=== PATIENT | female | born 1975 | race African-American/Black ===

== ENCOUNTER 2016-08-05 20:21 | Emergency (ER) | payer MEDICAID ==
[~2016-08-05] VITALS: Ht 170.2 cm; Wt 81.6 kg
[~2016-08-05 20:21] MED LIST: BENA40TA7 PO; HYDR25TA4 PO; LOR05T PO; METO-159 PO
[2016-08-05] MEDS ORDERED: cloNIDine HCL 0.1 MG TAB PO ONE ×3 (20:45→22:30)
[2016-08-05 21:30] LABS: CONDITION AutoValidated; Hematocrit 37.8 % (36.0-46.0); Hemoglobin 12.9 g/dL (12.2-16.2); Mean Corpuscular Hemoglobin 31.8 pg (28.0-32.0); Mean Corpuscular Hgb Conc. 34.2 g/dL (32.0-36.0); Mean Corpuscular Volume 93.1 fL (80.0-100.0); Mean Platelet Volume 7.4 fL (7.4-10.4); Platelet Count (auto) 376 10^3/uL (140-450); Red Cell Distribution Width 15.9 % (11.6-16.0); White Blood Cell 7.5 10^3/uL (4.4-10.8)
[2016-08-05 21:34] LABS: Metamyelocytes % 0; Myelocytes % 0; Promyelocytes % 0; Reactive Lymphocytes 0
[2016-08-05 21:45] LABS: Calcium 8.8 mg/dL (8.5-10.1)
[2016-08-05 21:48] LABS: Albumin 3.6 g/dL (3.4-5.0); BUN/Creatinine Ratio 12.6
[2016-08-05 21:51] LABS: Bilirubin, Total 0.5 mg/dL (0.2-1.0); Total Protein 7.2 g/dL (6.4-8.2)
[2016-08-05 21:52] LABS: Potassium 3.5 mmol/L (3.5-5.1)
[2016-08-05 22:09] LABS: Platelet Estimate Adequate
[2016-08-05 22:10] LABS: Giant Platelets Few; Stomatocytes Few
[2016-08-05] MEDS ORDERED: LORazepam 0.5 MG TAB PO ONE (22:30)
[2016-08-05] MEDS ORDERED: LABETALOL HCL 200 MG TAB PO ONE (23:30)
[2016-08-05 23:33] LABS: Urine Bilirubin Negative (Negative); Urine Blood Negative /uL (Negative); Urine Color Yellow (Yellow); Urine Glucose Normal (Normal); Urine Ketone Negative (Negative); Urine Nitrite Negative (Negative); Urine RBC <1 /hpf (0 - 4); Urine Squamous Epithelial Cell FEW /hpf (<5); Urine Urobilinogen Normal (Negative)
[2016-08-06 01:00] VITALS: BP 129/85
== END 2016-08-06 01:01 | disposition home or self-care (01) ==
LOC: EDUNIT# 20:21 → EDBD 20:21 → ER 20:31
DX: F41.9 Anxiety disorder, unspecified (principal); I10 Essential (primary) hypertension; I20.9 Angina pectoris, unspecified; F17.210 Nicotine dependence, cigarettes, uncomplicated; F15.10 Other stimulant abuse, uncomplicated; Z87.442 Personal history of urinary calculi
CPT/HCPCS: 36415; 80053; 81001; 85007; 85027

== ENCOUNTER 2020-04-05 19:50 | Emergency (ER) | payer MEDICAID ==
[~2020-04-05] VITALS: Ht 170.2 cm; Wt 104.3 kg
[~2020-04-05 19:50] MED LIST changes: -BENA40TA7 PO; +BENA40TA8 PO; -LOR05T PO; +LORA0.5T20 PO
[2020-04-05 22:04] VITALS: BP 130/88
== END 2020-04-05 22:38 ==
LOC: ER 19:52
DX: F10.129 Alcohol abuse with intoxication, unspecified (principal); F17.210 Nicotine dependence, cigarettes, uncomplicated; I10 Essential (primary) hypertension; Z79.899 Other long term (current) drug therapy

== ENCOUNTER 2020-04-27 04:11 | Emergency (ER) | payer MEDICAID ==
[~2020-04-27] VITALS: Ht 170.2 cm; Wt 79.4 kg
[2020-04-27] MEDS ORDERED: LORazepam 0.5 MG TAB PO ONE (05:45)
[2020-04-27 06:12] VITALS: BP 139/91
[2020-04-27 06:43] LABS: Basophils # (auto) 0.1 10 ^3/uL (0-0.2); Basophils % (auto) 1.2 % (0.0-2.0); Eosinophils # (auto) 0.1 10 ^3/uL (0-0.8); Eosinophils % (auto) 2.5 % (0.0-7.0); Hematocrit 33.9 % (36.0-46.0); Hemoglobin 11.5 g/dL (12.2-16.2); Lymphocytes # (auto) 1.4 10 ^3/uL (0.4-5.4); Lymphocytes % (auto) 23.5 % (10.0-50.0); Mean Corpuscular Hemoglobin 31.5 pg (28.0-32.0); Mean Corpuscular Volume 92.6 fL (80.0-100.0); Monocytes # (auto) 0.9 10 ^3/uL (0-1.3); Monocytes % (auto) 15.4 % (0.0-12.0); Neutrophils # (auto) 3.4 10 ^3/uL (1.6-8.6); Neutrophils % (auto) 57.4 % (37.0-80.0); Nucleated Red Blood Cells % 0.1 %; Platelet Count (auto) 210 10^3/uL (140-450); Red Blood Cells 3.66 10^6/uL (4.0-5.20); Red Cell Distribution Width 14.9 % (11.8-14.3); White Blood Cell 5.9 10^3/uL (4.4-10.8)
[2020-04-27 07:01] LABS: Albumin 3.1 g/dL (3.4-5.0); Anion Gap 8 (5-15); Blood Urea Nitrogen 17 mg/dL (7-18); Calcium 8.3 mg/dL (8.5-10.1); Carbon Dioxide 27 mmol/L (21-32); Chloride 104 mmol/L (98-107); Glucose 84 mg/dL (74-106); Potassium 3.1 mmol/L (3.5-5.1); Sodium 139 mmol/L (136-145)
[2020-04-27 07:06] LABS: Alanine Aminotransferase 57 U/L (13-56); Alkaline Phosphatase 104 U/L (45-117); Aspartate Aminotransferase 89 U/L (15-37); BUN/Creatinine Ratio 22.7; Bilirubin, Total 0.5 mg/dL (0.2-1.0); GFR African American 107 mL/min; GFR Non-African American 88 mL/min; Total Protein 7.3 g/dL (6.4-8.2)
== END 2020-04-27 06:18 | disposition home or self-care (01) ==
LOC: EDBD 04:11 → ER 04:11
DX: F41.9 Anxiety disorder, unspecified (principal); R20.2 Paresthesia of skin; F32.9 Major depressive disorder, single episode, unspecified; I10 Essential (primary) hypertension; F17.210 Nicotine dependence, cigarettes, uncomplicated; F10.20 Alcohol dependence, uncomplicated; Z79.899 Other long term (current) drug therapy; Y90.9 Presence of alcohol in blood, level not specified
CPT/HCPCS: 36415; 71045; 80053; 83880; 84484; 85025; 93005

== ENCOUNTER 2020-05-26 19:25 | Emergency (ER) | payer MEDICAID ==
[~2020-05-26] VITALS: Ht 152.4 cm; Wt 72.6 kg
[2020-05-26] MEDS ORDERED: LORazepam 0.5 MG TAB PO ONE (19:30)
[2020-05-27 00:36] VITALS: BP 150/91
== END 2020-05-27 00:39 | disposition home or self-care (01) ==
LOC: EDBD 19:25 → ER 19:25
DX: F41.0 Panic disorder [episodic paroxysmal anxiety] (principal); F41.9 Anxiety disorder, unspecified; F32.9 Major depressive disorder, single episode, unspecified; I10 Essential (primary) hypertension; F17.210 Nicotine dependence, cigarettes, uncomplicated
CPT/HCPCS: 81025; 93005

== ENCOUNTER 2020-06-04 17:15 | Emergency (ER) | payer MEDICAID ==
[~2020-06-04] VITALS: Ht 170.2 cm; Wt 81.6 kg
[2020-06-04] MEDS ORDERED: THIAMINE INJ 100 MG in SODIUM CHLORIDE 0.9% 1,000 ML IV ONE (17:45)
[2020-06-04] MEDS ORDERED: SODIUM CHLORIDE 0.9% 1,000 ML IV ONE ×2 (17:45→20:00)
[2020-06-04] MEDS ORDERED: LORazepam 2MG/ML-1ML VIAL IV ONE (18:30)
[2020-06-04 18:48] LABS: Urine Bacteria FEW /hpf (None Seen); Urine Blood TRACE /uL (Negative); Urine Hyaline Cast FEW /lpf (0 - 2); Urine Mucus FEW (None Seen); Urine Specific Gravity 1.012 (1.001-1.035); Urine WBC 31 /hpf (0 - 5)
[2020-06-04 18:53] LABS: Amphetamine Screen, Urine NEGATIVE (NEGATIVE); Barbiturate Scree,Urine NEGATIVE (NEGATIVE); Benzodiazephine Screen, Urine NEGATIVE (NEGATIVE); Cannabinoid Screen, Urine NEGATIVE (NEGATIVE); Cocaine Screen, Urine NEGATIVE (NEGATIVE); Opiate Scree,Urine NEGATIVE (NEGATIVE); Phencyclidine Screen, Urine NEGATIVE (NEGATIVE)
[2020-06-04] MEDS ORDERED: cefTRIAXone 1GM/50ML D5W 50 ML IV ONE (19:00)
[2020-06-04 19:39] LABS: Basophils # (auto) 0 10 ^3/uL (0-0.2); Basophils % (auto) 0.8 % (0.0-2.0); Eosinophils # (auto) 0 10 ^3/uL (0-0.8); Hematocrit 41.5 % (36.0-46.0); Hemoglobin 14.1 g/dL (12.2-16.2); Lymphocytes # (auto) 1.3 10 ^3/uL (0.4-5.4); Lymphocytes % (auto) 27.5 % (10.0-50.0); Mean Corpuscular Hemoglobin 30.9 pg (28.0-32.0); Mean Corpuscular Hgb Conc. 33.8 g/dL (32.0-36.0); Mean Corpuscular Volume 91.2 fL (80.0-100.0); Monocytes # (auto) 0.2 10 ^3/uL (0-1.3); Monocytes % (auto) 3.2 % (0.0-12.0); Neutrophils # (auto) 3.3 10 ^3/uL (1.6-8.6); Neutrophils % (auto) 68.5 % (37.0-80.0); Nucleated Red Blood Cells % 0.4 %; Platelet Count (auto) 282 10^3/uL (140-450); Red Blood Cells 4.55 10^6/uL (4.0-5.20); Red Cell Distribution Width 15.5 % (11.8-14.3); White Blood Cell 4.9 10^3/uL (4.4-10.8)
[2020-06-04 19:54] LABS: BUN/Creatinine Ratio 10.7; Calcium 8.4 mg/dL (8.5-10.1); Magnesium 1.9 mg/dL (1.6-2.6); Potassium 3.6 mmol/L (3.5-5.1)
[2020-06-04 19:56] LABS: Bilirubin, Total 0.6 mg/dL (0.2-1.0); INR 0.99 (0.9-1.15); Partial Thromboplastin Time 27.6 sec (23.0-31.2); Salicylate < 1.7 mg/dL (2.8-20.0); Total Protein 8.6 g/dL (6.4-8.2)
[2020-06-04 19:57] LABS: Acetaminophen < 2.0 ug/mL (10-30)
[2020-06-04 20:11] LABS: Blood Alcohol 371.7 mg/dL (0-5)
[2020-06-04 21:51] VITALS: BP 139/95
== END 2020-06-04 22:10 | disposition home or self-care (01) ==
LOC: ER 17:15 → EDBD 17:15 → EDUNIT# 17:15 → ER 22:10
DX: F10.129 Alcohol abuse with intoxication, unspecified (principal); N39.0 Urinary tract infection, site not specified; F41.9 Anxiety disorder, unspecified; F32.9 Major depressive disorder, single episode, unspecified; I10 Essential (primary) hypertension; F17.210 Nicotine dependence, cigarettes, uncomplicated; R41.82 Altered mental status, unspecified; F60.3 Borderline personality disorder; Y90.8 Blood alcohol level of 240 mg/100 ml or more
CPT/HCPCS: 36415; 80053; 80307; 80320; 80329; 81001; 83735; 83880; 84443; 84484; 85025; 85610; 85730; 96361; 96365; 96368; 96375; 99284; J0696; J2060; J3411; J7030

== ENCOUNTER 2020-06-09 09:38 | Emergency (ER) | payer MEDICAID ==
[~2020-06-09] VITALS: Ht 172.7 cm; Wt 72.6 kg
[2020-06-09 10:03] VITALS: BP 130/90
== END 2020-06-09 10:06 | disposition home or self-care (01) ==
LOC: ER 09:38 → EDBD 09:38 → ER 10:06
DX: F41.9 Anxiety disorder, unspecified (principal)

== ENCOUNTER 2020-06-10 02:31 | Emergency (ER) | payer MEDICAID ==
[~2020-06-10] VITALS: Ht 175.3 cm; Wt 81.6 kg
[2020-06-10] MEDS ORDERED: LABETALOL HCL 200 MG TAB PO ONE (05:15)
[2020-06-10] MEDS ORDERED: SODIUM CHLORIDE 0.9% 1,000 ML IVB ONE (07:15)
[2020-06-10 08:01] LABS: Basophils # (auto) 0.1 10 ^3/uL (0-0.2); Basophils % (auto) 1.4 % (0.0-2.0); Eosinophils # (auto) 0.1 10 ^3/uL (0-0.8); Eosinophils % (auto) 1.5 % (0.0-7.0); Hematocrit 37.5 % (36.0-46.0); Hemoglobin 12.7 g/dL (12.2-16.2); Lymphocytes # (auto) 1.7 10 ^3/uL (0.4-5.4); Lymphocytes % (auto) 32.7 % (10.0-50.0); Mean Corpuscular Hgb Conc. 33.9 g/dL (32.0-36.0); Mean Corpuscular Volume 91.3 fL (80.0-100.0); Monocytes # (auto) 0.5 10 ^3/uL (0-1.3); Monocytes % (auto) 9.7 % (0.0-12.0); Neutrophils # (auto) 2.9 10 ^3/uL (1.6-8.6); Neutrophils % (auto) 54.7 % (37.0-80.0); Nucleated Red Blood Cells % 0.1 %; Platelet Count (auto) 183 10^3/uL (140-450); Red Blood Cells 4.11 10^6/uL (4.0-5.20); Red Cell Distribution Width 15.9 % (11.8-14.3); White Blood Cell 5.2 10^3/uL (4.4-10.8)
[2020-06-10 08:20] LABS: Albumin 3.6 g/dL (3.4-5.0); Magnesium 2.1 mg/dL (1.6-2.6)
[2020-06-10 08:28] LABS: BUN/Creatinine Ratio 16.1; Bilirubin, Total 0.6 mg/dL (0.2-1.0); Total Protein 7.3 g/dL (6.4-8.2)
[2020-06-10 08:47] LABS: Potassium 2.9 mmol/L (3.5-5.1)
[2020-06-10] MEDS ORDERED: POTASSIUM EFFERVESENT TAB 25 MEQ PO ONE (09:00)
[2020-06-10 10:44] LABS: Urine Bacteria FEW /hpf (None Seen); Urine Blood Negative /uL (Negative); Urine Hyaline Cast FEW /lpf (0 - 2); Urine Mucus FEW (None Seen); Urine Specific Gravity 1.025 (1.001-1.035); Urine WBC 6 /hpf (0 - 5)
[2020-06-10 11:06] LABS: Amphetamine Screen, Urine NEGATIVE (NEGATIVE); Barbiturate Scree,Urine NEGATIVE (NEGATIVE); Benzodiazephine Screen, Urine NEGATIVE (NEGATIVE); Cannabinoid Screen, Urine NEGATIVE (NEGATIVE); Cocaine Screen, Urine NEGATIVE (NEGATIVE); Opiate Scree,Urine NEGATIVE (NEGATIVE); Phencyclidine Screen, Urine NEGATIVE (NEGATIVE)
[2020-06-10] MEDS ORDERED: LORazepam 2MG/ML-1ML VIAL IV ONE (11:30)
[2020-06-10 14:40] VITALS: BP 160/112
== END 2020-06-10 15:15 | disposition home or self-care (01) ==
LOC: EDBD 02:31 → ER 02:37
DX: F43.20 Adjustment disorder, unspecified (principal); F10.19 Alcohol abuse with unspecified alcohol-induced disorder; E87.6 Hypokalemia; I10 Essential (primary) hypertension
CPT/HCPCS: 36415; 80053; 80307; 81001; 83735; 84443; 85025; 93005; 96361; 96374; 99285; J2060; J7030

== ENCOUNTER 2020-06-22 22:39 | Emergency (ER) | payer MEDICAID ==
[~2020-06-22] VITALS: Ht 157.5 cm; Wt 77.1 kg
[2020-06-23] MEDS ORDERED: FOLIC ACID 1 MG TAB PO ONE (00:30)
[2020-06-23] MEDS ORDERED: THIAMINE HCL 100 MG TAB PO ONE (00:30)
[2020-06-23 05:00] VITALS: BP 111/80
== END 2020-06-23 05:54 | disposition home or self-care (01) ==
LOC: EDBD 22:39 → ER 22:43
DX: F10.129 Alcohol abuse with intoxication, unspecified (principal); F43.21 Adjustment disorder with depressed mood; F17.210 Nicotine dependence, cigarettes, uncomplicated; F41.9 Anxiety disorder, unspecified; F32.9 Major depressive disorder, single episode, unspecified; I10 Essential (primary) hypertension; Y90.8 Blood alcohol level of 240 mg/100 ml or more

== ENCOUNTER 2020-06-29 08:44 | Emergency (ER) | payer MEDICAID ==
[~2020-06-29] VITALS: Ht 172.7 cm; Wt 81.6 kg
[2020-06-29] MEDS ORDERED: LORazepam 2MG/ML-1ML VIAL IV ONE (09:00)
[2020-06-29] MEDS ORDERED: SODIUM CHLORIDE 0.9% 1,000 ML IV ONE (09:00)
[2020-06-29 09:16] LABS: Basophils # (auto) 0.1 10 ^3/uL (0-0.2); Eosinophils # (auto) 0 10 ^3/uL (0-0.8); Eosinophils % (auto) 0.4 % (0.0-7.0); Lymphocytes # (auto) 2.4 10 ^3/uL (0.4-5.4); Monocytes # (auto) 0.8 10 ^3/uL (0-1.3); White Blood Cell 7.5 10^3/uL (4.4-10.8)
[2020-06-29 09:18] LABS: Hematocrit 41.8 % (36.0-46.0); Mean Corpuscular Hemoglobin 30.7 pg (28.0-32.0); Mean Corpuscular Hgb Conc. 33.6 g/dL (32.0-36.0); Mean Corpuscular Volume 91.2 fL (80.0-100.0); Monocytes % (auto) 10.7 % (0.0-12.0); Neutrophils # (auto) 4.2 10 ^3/uL (1.6-8.6); Neutrophils % (auto) 55.9 % (37.0-80.0); Red Blood Cells 4.58 10^6/uL (4.0-5.20); Red Cell Distribution Width 16.7 % (11.8-14.3)
[2020-06-29 09:49] LABS: Anion Gap 16 (5-15); BUN/Creatinine Ratio 6.6; Blood Urea Nitrogen 6 mg/dL (7-18); Carbon Dioxide 22 mmol/L (21-32); Chloride 100 mmol/L (98-107); GFR African American 85 mL/min; GFR Non-African American 70 mL/min; Glucose 135 mg/dL (74-106); Potassium 3.7 mmol/L (3.5-5.1); Sodium 138 mmol/L (136-145)
[2020-06-29 09:50] LABS: Alanine Aminotransferase 62 U/L (13-56); Alkaline Phosphatase 86 U/L (45-117); Aspartate Aminotransferase 92 U/L (15-37); Bilirubin, Total 0.8 mg/dL (0.2-1.0); Calcium 8.4 mg/dL (8.5-10.1)
[2020-06-29] MEDS ORDERED: LABETALOL HCL 5 MG/ML 4ML SYRINGE IV ONE (11:15)
[2020-06-29 12:09] VITALS: BP 154/103
== END 2020-06-29 12:31 | disposition home or self-care (01) ==
LOC: EDBD 08:44 → ER 08:44
DX: F10.180 Alcohol abuse with alcohol-induced anxiety disorder (principal); I10 Essential (primary) hypertension; F17.210 Nicotine dependence, cigarettes, uncomplicated; Z79.899 Other long term (current) drug therapy; Y90.8 Blood alcohol level of 240 mg/100 ml or more
CPT/HCPCS: 36415; 80053; 80320; 84484; 85025; 96361; 96374; 96375; 99285; J2060; J3490; J7030

== ENCOUNTER 2020-07-02 00:18 | Emergency (ER) | payer MEDICAID ==
[~2020-07-02] VITALS: Ht 170.2 cm; Wt 81.6 kg
[2020-07-02 01:02] LABS: Basophils # (auto) 0 10 ^3/uL (0-0.2); Basophils % (auto) 0.6 % (0.0-2.0); Eosinophils # (auto) 0 10 ^3/uL (0-0.8); Eosinophils % (auto) 0.5 % (0.0-7.0); Hematocrit 41.5 % (36.0-46.0); Hemoglobin 14.3 g/dL (12.2-16.2); Lymphocytes # (auto) 3.5 10 ^3/uL (0.4-5.4); Lymphocytes % (auto) 45.2 % (10.0-50.0); Mean Corpuscular Hgb Conc. 34.5 g/dL (32.0-36.0); Mean Corpuscular Volume 89.9 fL (80.0-100.0); Monocytes # (auto) 0.8 10 ^3/uL (0-1.3); Monocytes % (auto) 10.5 % (0.0-12.0); Neutrophils # (auto) 3.4 10 ^3/uL (1.6-8.6); Neutrophils % (auto) 43.2 % (37.0-80.0); Nucleated Red Blood Cells % 0.1 %; Platelet Count (auto) 305 10^3/uL (140-450); Red Blood Cells 4.61 10^6/uL (4.0-5.20); Red Cell Distribution Width 16.6 % (11.8-14.3); White Blood Cell 7.8 10^3/uL (4.4-10.8)
[2020-07-02 01:18] LABS: Albumin 3.8 g/dL (3.4-5.0); BUN/Creatinine Ratio 14.3; Calcium 8.1 mg/dL (8.5-10.1); Potassium 3.6 mmol/L (3.5-5.1)
[2020-07-02 01:20] LABS: Salicylate < 1.7 mg/dL (2.8-20.0)
[2020-07-02 01:22] LABS: Acetaminophen < 2.0 ug/mL (10-30)
[2020-07-02 01:23] LABS: Bilirubin, Total 0.9 mg/dL (0.2-1.0); Total Protein 8.3 g/dL (6.4-8.2)
[2020-07-02 07:29] LABS: Urine Bacteria FEW /hpf (None Seen); Urine Blood TRACE /uL (Negative); Urine Mucus FEW (None Seen); Urine Specific Gravity 1.014 (1.001-1.035); Urine WBC 16 /hpf (0 - 5)
[2020-07-02 07:31] LABS: Amphetamine Screen, Urine NEGATIVE (NEGATIVE); Barbiturate Scree,Urine NEGATIVE (NEGATIVE); Benzodiazephine Screen, Urine NEGATIVE (NEGATIVE); Cannabinoid Screen, Urine NEGATIVE (NEGATIVE); Cocaine Screen, Urine NEGATIVE (NEGATIVE); Opiate Scree,Urine NEGATIVE (NEGATIVE); Phencyclidine Screen, Urine NEGATIVE (NEGATIVE)
[2020-07-02] MEDS ORDERED: SODIUM CHLORIDE 0.9% 2,000 ML IV ONE (10:00)
[2020-07-02] MEDS ORDERED: LORazepam 2MG/ML-1ML VIAL IV ONE ×2 (10:00→20:45)
[2020-07-02] MEDS ORDERED: ONDANSETRON HCL 4 MG/2 ML VIAL ONE (10:22)
[2020-07-02] MEDS ORDERED: ONDANSETRON HCL 4 MG/2 ML VIAL IV ONE (10:30)
[2020-07-02] MEDS: FOLIC ACID 1 MG, MULTIPLE VITAMIN 10 ML, MAGNESIUM SULF SDV 50% 8 MEQ, THIAMINE INJ 100... INJ SCH ×5 (11:37)
[2020-07-02] MEDS ORDERED: HCTZ 25 MG TAB PO ONE (16:15)
[2020-07-02] MEDS ORDERED: BENAZEPRIL HCL 10 MG TAB PO ONE (16:15)
[2020-07-02] MEDS ORDERED: cloNIDine HCL 0.1 MG TAB PO ONE (20:45)
[2020-07-03] MEDS ORDERED: diphenhdrAMINE HCL 50 MG/1 ML VL IV ONE ×3 (07:45→16:45)
[2020-07-03] MEDS ORDERED: HCTZ 25 MG TAB PO SCH (10:00)
[2020-07-03] MEDS ORDERED: CIPROFLOXACIN HCL 500 MG TAB PO ONE (10:00)
[2020-07-03] MEDS ORDERED: BENAZEPRIL HCL 10 MG TAB PO SCH (10:00)
[2020-07-03] MEDS ORDERED: methylPREDNISolone SOD SUCC 125 MG/2 ML VL IV ONE ×2 (11:00→16:45)
[2020-07-03] MEDS: FOLIC ACID 1 MG, MULTIPLE VITAMIN 10 ML, MAGNESIUM SULF SDV 50% 8 MEQ, THIAMINE INJ 100... INJ SCH ×5 (12:00)
[2020-07-03] MEDS ORDERED: LORazepam 0.5 MG TAB ONE (13:30)
[2020-07-03] MEDS ORDERED: LABETALOL HCL 5 MG/ML 4ML SYRINGE IV ONE ×2 (14:45)
[2020-07-03 19:22] VITALS: BP 158/117
== END 2020-07-03 20:02 | disposition home or self-care (01) ==
LOC: EDBD 00:18 → ER 00:23
DX: R45.851 Suicidal ideations (principal); F32.9 Major depressive disorder, single episode, unspecified; F41.9 Anxiety disorder, unspecified; F17.210 Nicotine dependence, cigarettes, uncomplicated; F10.129 Alcohol abuse with intoxication, unspecified; Z32.02 Encounter for pregnancy test, result negative; Z20.822 Contact with and (suspected) exposure to COVID-19; Y90.8 Blood alcohol level of 240 mg/100 ml or more
CPT/HCPCS: 36415; 71046; 80053; 80307; 80320; 80329; 81001; 81025; 83735; 84443; 85025; 87426; 96361; 96374; 96375; 96376; 99285; J1200; J2060; J2405; J2930; J3411; J3475; J3490; J7030

== ENCOUNTER 2020-07-09 10:29 | Emergency (ER) | payer MEDICAID ==
[~2020-07-09] VITALS: Ht 167.6 cm; Wt 81.6 kg
[2020-07-09] MEDS ORDERED: cloNIDine HCL 0.1 MG TAB PO ONE (10:45)
[2020-07-09] MEDS ORDERED: SODIUM CHLORIDE 0.9% 500 ML IV ONE (10:45)
[2020-07-09] MEDS ORDERED: LORazepam 2MG/ML-1ML VIAL IV ONE (10:45)
[2020-07-09 11:59] LABS: Hematocrit 40.2 % (36.0-46.0); Hemoglobin 13.8 g/dL (12.2-16.2); Mean Corpuscular Hemoglobin 32.1 pg (28.0-32.0); Mean Corpuscular Hgb Conc. 34.2 g/dL (32.0-36.0); Mean Corpuscular Volume 93.8 fL (80.0-100.0); Platelet Count (auto) 255 10^3/uL (140-450); Red Blood Cells 4.28 10^6/uL (4.0-5.20); Red Cell Distribution Width 16.6 % (11.8-14.3); White Blood Cell 6.2 10^3/uL (4.4-10.8)
[2020-07-09 12:04] LABS: Band Neutrophils % (manual) 0; Basophils % (manual) 0 (0.0-2.0); Blast Cells 0; Metamyelocytes % 0; Myelocytes % 0; Promyelocytes % 0; Reactive Lymphocytes 0
[2020-07-09 12:08] VITALS: BP 131/101
[2020-07-09 12:11] LABS: Anion Gap 9 (5-15); Blood Urea Nitrogen 13 mg/dL (7-18); Calcium 9.1 mg/dL (8.5-10.1); Carbon Dioxide 21 mmol/L (21-32); Chloride 106 mmol/L (98-107); Potassium 3.9 mmol/L (3.5-5.1); Sodium 136 mmol/L (136-145)
[2020-07-09 12:19] LABS: Alanine Aminotransferase 46 U/L (13-56); Albumin 3.5 g/dL (3.4-5.0); Alkaline Phosphatase 72 U/L (45-117); Aspartate Aminotransferase 29 U/L (15-37); BUN/Creatinine Ratio 14.6; Bilirubin, Total 0.5 mg/dL (0.2-1.0); GFR African American 87 mL/min; GFR Non-African American 72 mL/min; Glucose 131 mg/dL (74-106); Total Protein 7.8 g/dL (6.4-8.2)
[2020-07-09 12:36] LABS: Eosinophils % (manual) 2 (0-7); Lymphocytes % (manual) 43 (10.0-50.0); Monocytes % (manual) 17 (0-12)
== END 2020-07-09 13:08 | disposition home or self-care (01) ==
LOC: ER 10:29 → EDUNIT# 10:29 → EDBD 10:29 → ER 13:08
DX: F41.9 Anxiety disorder, unspecified (principal); R07.89 Other chest pain; I16.0 Hypertensive urgency; I10 Essential (primary) hypertension; F17.210 Nicotine dependence, cigarettes, uncomplicated
CPT/HCPCS: 36415; 80053; 84484; 85007; 85027; 93005; 96361; 96374; 99284; J2060; J7040

== ENCOUNTER 2020-07-28 20:28 | Emergency (ER) | payer MEDICAID ==
[~2020-07-28] VITALS: Ht 170.2 cm; Wt 74.8 kg
[2020-07-28] MEDS ORDERED: ALPRAZolam 0.5 MG TAB PO ONE (20:45)
[2020-07-28 21:11] VITALS: BP 140/90
[2020-07-28] MEDS ORDERED: diazePAM 5 MG TAB ONE (22:26)
[2020-07-28] MEDS ORDERED: diazePAM 5 MG TAB PO ONE (22:30)
== END 2020-07-29 02:03 | disposition home or self-care (01) ==
LOC: ER 20:28 → EDBD 20:28 → ER 07-29 02:01
DX: F10.180 Alcohol abuse with alcohol-induced anxiety disorder (principal); F41.9 Anxiety disorder, unspecified; F17.210 Nicotine dependence, cigarettes, uncomplicated; I10 Essential (primary) hypertension

== ENCOUNTER 2020-08-05 02:47 | Emergency (ER) | payer MEDICAID ==
[~2020-08-05] VITALS: Ht 177.8 cm; Wt 90.7 kg
[2020-08-05] MEDS ORDERED: SODIUM CHLORIDE 0.9% 1,000 ML IVB ONE (06:45)
[2020-08-05 07:44] LABS: Basophils # (auto) 0 10 ^3/uL (0-0.2); Basophils % (auto) 1.1 % (0.0-2.0); Eosinophils # (auto) 0 10 ^3/uL (0-0.8); Eosinophils % (auto) 0.6 % (0.0-7.0); Hematocrit 37.6 % (36.0-46.0); Lymphocytes % (auto) 45.8 % (10.0-50.0); Mean Corpuscular Hemoglobin 31.4 pg (28.0-32.0); Mean Corpuscular Hgb Conc. 34.7 g/dL (32.0-36.0); Mean Corpuscular Volume 90.6 fL (80.0-100.0); Monocytes # (auto) 0.4 10 ^3/uL (0-1.3); Monocytes % (auto) 9.2 % (0.0-12.0); Neutrophils # (auto) 1.9 10 ^3/uL (1.6-8.6); Neutrophils % (auto) 43.3 % (37.0-80.0); Nucleated Red Blood Cells % 0.1 %; Red Blood Cells 4.15 10^6/uL (4.0-5.20); Red Cell Distribution Width 16.9 % (11.8-14.3); White Blood Cell 4.4 10^3/uL (4.4-10.8)
[2020-08-05 08:02] LABS: Albumin 3.3 g/dL (3.4-5.0); Calcium 7.3 mg/dL (8.5-10.1); Magnesium 1.9 mg/dL (1.6-2.6); Potassium 3.2 mmol/L (3.5-5.1)
[2020-08-05 08:05] LABS: BUN/Creatinine Ratio 14.5; Bilirubin, Total 0.5 mg/dL (0.2-1.0)
[2020-08-05] MEDS: FOLIC ACID 1 MG, MULTIPLE VITAMIN 10 ML, MAGNESIUM SULF SDV 50% 8 MEQ, THIAMINE INJ 100... INJ SCH ×10 (08:36→08:50)
[2020-08-05] MEDS ORDERED: LORazepam 2MG/ML-1ML VIAL IV ONE (10:45)
[2020-08-05 10:55] LABS: Urine Bacteria FEW /hpf (None Seen); Urine Blood Negative /uL (Negative); Urine Mucus FEW (None Seen); Urine Specific Gravity 1.013 (1.001-1.035); Urine WBC 6 /hpf (0 - 5)
[2020-08-05 10:59] LABS: Amphetamine Screen, Urine NEGATIVE (NEGATIVE); Barbiturate Scree,Urine NEGATIVE (NEGATIVE); Benzodiazephine Screen, Urine NEGATIVE (NEGATIVE); Cannabinoid Screen, Urine NEGATIVE (NEGATIVE); Cocaine Screen, Urine NEGATIVE (NEGATIVE); Opiate Scree,Urine NEGATIVE (NEGATIVE); Phencyclidine Screen, Urine NEGATIVE (NEGATIVE)
[2020-08-05] MEDS ORDERED: POTASSIUM EFFERVESENT TAB 25 MEQ PO ONE (11:45)
[2020-08-05 15:00] VITALS: BP 126/81
== END 2020-08-05 16:21 | disposition home or self-care (01) ==
LOC: EDBD 02:47 → ER 02:47
DX: R41.82 Altered mental status, unspecified (principal); F10.129 Alcohol abuse with intoxication, unspecified; E87.6 Hypokalemia; I10 Essential (primary) hypertension; F43.29 Adjustment disorder with other symptoms; E46 Unspecified protein-calorie malnutrition; F17.210 Nicotine dependence, cigarettes, uncomplicated; Z68.28 Body mass index [BMI] 28.0-28.9, adult; Z79.899 Other long term (current) drug therapy; Z88.8 Allergy status to other drugs, medicaments and biological substances; Y90.8 Blood alcohol level of 240 mg/100 ml or more
CPT/HCPCS: 36415; 80053; 80307; 80320; 81001; 83735; 85025; 93005; 96361; 96365; 96366; 96375; 99284; J2060; J3411; J3475; J7030

== ENCOUNTER 2020-08-06 05:26 | Emergency (ER) | payer MEDICAID ==
[~2020-08-06] VITALS: Ht 170.2 cm; Wt 74.8 kg
[2020-08-06 05:32] VITALS: BP 157/94
[2020-08-06] MEDS ORDERED: LORazepam 2MG/ML-1ML VIAL IV ONE (08:15)
[2020-08-06] MEDS ORDERED: SODIUM CHLORIDE 0.9% 500 ML IV ONE (08:15)
== END 2020-08-06 09:20 | disposition home or self-care (01) ==
LOC: EDBD 05:26 → ER 05:26
DX: F41.1 Generalized anxiety disorder (principal); F17.210 Nicotine dependence, cigarettes, uncomplicated; F32.9 Major depressive disorder, single episode, unspecified; I10 Essential (primary) hypertension
CPT/HCPCS: 96361; 96374; 99283; J2060; J7040

== ENCOUNTER 2020-10-31 16:22 | Emergency (ER) | payer MEDICAID ==
[~2020-10-31] VITALS: Ht 170.2 cm; Wt 79.4 kg
[2020-10-31] MEDS ORDERED: LORazepam 0.5 MG TAB PO ONE (17:00)
[2020-10-31 17:03] LABS: Urine WBC None Seen /hpf (0 - 5)
[2020-10-31 17:13] LABS: Urine Bacteria FEW /hpf (None Seen); Urine Blood TRACE /uL (Negative); Urine Specific Gravity 1.018 (1.001-1.035)
[2020-10-31 18:16] LABS: Basophils # (auto) 0.1 10 ^3/uL (0-0.2); Basophils % (auto) 1.2 % (0.0-2.0); Eosinophils # (auto) 0 10 ^3/uL (0-0.8); Eosinophils % (auto) 0.2 % (0.0-7.0); Hematocrit 41.5 % (36.0-46.0); Lymphocytes # (auto) 1.5 10 ^3/uL (0.4-5.4); Lymphocytes % (auto) 20.1 % (10.0-50.0); Mean Corpuscular Hemoglobin 30.8 pg (28.0-32.0); Mean Corpuscular Hgb Conc. 33.7 g/dL (32.0-36.0); Mean Corpuscular Volume 91.6 fL (80.0-100.0); Monocytes # (auto) 0.4 10 ^3/uL (0-1.3); Neutrophils # (auto) 5.3 10 ^3/uL (1.6-8.6); Neutrophils % (auto) 73.5 % (37.0-80.0); Red Blood Cells 4.54 10^6/uL (4.0-5.20); Red Cell Distribution Width 15.4 % (11.8-14.3); White Blood Cell 7.3 10^3/uL (4.4-10.8)
[2020-10-31 18:32] LABS: Albumin 3.5 g/dL (3.4-5.0); Potassium 3.8 mmol/L (3.5-5.1)
[2020-10-31 18:36] LABS: BUN/Creatinine Ratio 12.2; Bilirubin, Total 1.5 mg/dL (0.2-1.0); Total Protein 7.4 g/dL (6.4-8.2)
[2020-10-31] MEDS ORDERED: cloNIDine HCL 0.1 MG TAB PO ONE (22:30)
[2020-11-01 00:45] VITALS: BP 163/110
== END 2020-11-01 00:52 | disposition home or self-care (01) ==
LOC: EDUNIT# 16:22 → EDBD 16:22 → ER 16:24
DX: F41.0 Panic disorder [episodic paroxysmal anxiety] (principal); I10 Essential (primary) hypertension; F32.9 Major depressive disorder, single episode, unspecified; F17.210 Nicotine dependence, cigarettes, uncomplicated; Z76.0 Encounter for issue of repeat prescription
CPT/HCPCS: 36415; 71045; 80053; 81001; 81025; 85025; 93005

== ENCOUNTER 2021-07-25 11:44 | Emergency (ER) | payer MEDICAID ==
[~2021-07-25] VITALS: Ht 167.6 cm; Wt 81.6 kg
[2021-07-25] MEDS ORDERED: KETOROLAC TROMETH 60MG/2ML VIAL IM ONE (12:00)
[2021-07-25] MEDS ORDERED: LORazepam 2MG/ML-1ML VIAL IM ONE (12:00)
[2021-07-25] MEDS ORDERED: IBUP800T27 PO (13:02)
[2021-07-25 13:37] VITALS: BP 133/97
== END 2021-07-25 13:38 | disposition home or self-care (01) ==
LOC: ER 11:44 → EDBD 11:44 → ER 13:38
DX: S93.401A Sprain of unspecified ligament of right ankle, initial encounter (principal); F10.180 Alcohol abuse with alcohol-induced anxiety disorder; F17.210 Nicotine dependence, cigarettes, uncomplicated; I10 Essential (primary) hypertension; X58.XXXA Exposure to other specified factors, initial encounter; Y93.89 Activity, other specified; Y92.89 Other specified places as the place of occurrence of the external cause; Y99.8 Other external cause status; Y90.8 Blood alcohol level of 240 mg/100 ml or more
CPT/HCPCS: 73600; 96372; 99284; J1885; J2060

== ENCOUNTER → 2021-08-30 | Emergency (ER) | payer MEDICAID ==
[~2021-08-30] VITALS: Ht 177.8 cm; Wt 104.3 kg
[~2021-08-30] MED LIST changes: +CHL25C PO; +IBUP800T27 PO; +LORazepam 2MG/ML-1ML VIAL IM ONE
[2021-08-30 12:51] VITALS: BP 148/108
== END | disposition home or self-care (01) ==
LOC: EDUNIT# 10:54 → EDBD 11:01 → ER 11:07
DX: F41.9 Anxiety disorder, unspecified (principal); F17.210 Nicotine dependence, cigarettes, uncomplicated; F32.9 Major depressive disorder, single episode, unspecified; I10 Essential (primary) hypertension; Z88.8 Allergy status to other drugs, medicaments and biological substances
CPT/HCPCS: 93005; 96372; 99283; J2060

== ENCOUNTER 2021-08-31 07:22 | Emergency (ER) | payer MEDICAID ==
[~2021-08-31] VITALS: Ht 167.6 cm; Wt 77.1 kg
[~2021-08-31 07:22] MED LIST changes: -CHL25C PO; -LORazepam 2MG/ML-1ML VIAL IM ONE
[2021-08-31 07:28] VITALS: BP 138/77
[2021-08-31] MEDS ORDERED: LORazepam 2MG/ML-1ML VIAL IM ONE (09:00)
[2021-08-31] MEDS ORDERED: SODIUM CHLORIDE 0.9% 1,000 ML IV ONE (09:00)
[2021-08-31 09:17] LABS: Basophils # (auto) 0 10 ^3/uL (0-0.2); Basophils % (auto) 0.5 % (0.0-2.0); Eosinophils # (auto) 0 10 ^3/uL (0-0.8); Hematocrit 38.4 % (36.0-46.0); Hemoglobin 13.1 g/dL (12.2-16.2); Lymphocytes # (auto) 0.8 10 ^3/uL (0.4-5.4); Lymphocytes % (auto) 10.6 % (10.0-50.0); Mean Corpuscular Hemoglobin 30.5 pg (28.0-32.0); Mean Corpuscular Hgb Conc. 34.1 g/dL (32.0-36.0); Mean Corpuscular Volume 89.5 fL (80.0-100.0); Monocytes # (auto) 0.5 10 ^3/uL (0-1.3); Monocytes % (auto) 6.8 % (0.0-12.0); Neutrophils # (auto) 5.8 10 ^3/uL (1.6-8.6); Neutrophils % (auto) 82.1 % (37.0-80.0); Nucleated Red Blood Cells % 0.1 %; White Blood Cell 7.1 10^3/uL (4.4-10.8)
[2021-08-31] MEDS ORDERED: CHL25C PO ×2 (09:18→09:25)
[2021-08-31 09:36] LABS: Albumin 3.6 g/dL (3.4-5.0); BUN/Creatinine Ratio 7.1; Calcium 7.9 mg/dL (8.5-10.1)
[2021-08-31 09:38] LABS: Bilirubin, Total 1.3 mg/dL (0.2-1.0); Total Protein 8.2 g/dL (6.4-8.2)
== END 2021-08-31 11:15 | disposition home or self-care (01) ==
LOC: ER 07:22 → EDUNIT# 07:22 → EDBD 07:22 → ER 11:10
DX: F10.180 Alcohol abuse with alcohol-induced anxiety disorder (principal); I10 Essential (primary) hypertension; Y90.8 Blood alcohol level of 240 mg/100 ml or more
CPT/HCPCS: 36415; 80053; 80320; 85025; 96360; 96372; 99284; J2060; J7030; 93005

== ENCOUNTER 2022-10-16 10:08 | Emergency (ER) | payer MEDICAID ==
[~2022-10-16] VITALS: Ht 172.7 cm; Wt 83.0 kg
[~2022-10-16 10:08] MED LIST changes: +BENA40TA70 PO; -BENA40TA8 PO; +CHL25C PO; +IBUP-1456 PO; -IBUP800T27 PO; +LORA-1121 PO; -LORA0.5T20 PO
[2022-10-16 10:42] VITALS: RESP 19; TEMP 98.6; O2SAT 98
[2022-10-16 11:49] VITALS: BP 142/66; PULSE 98
[2022-10-16] MEDS ORDERED: KETOROLAC TROMETH 30 MG/ML 1ML VIAL IV ONE (12:45)
[2022-10-16] MEDS ORDERED: DexAMETHasone SOD PHOS 10MG/1ML VIAL INJ IM ONE (12:45)
[2022-10-16] MEDS ORDERED: KETOROLAC TROMETH 60MG/2ML VIAL IM ONE (12:45)
[2022-10-16] MEDS ORDERED: PRED20TA2 PO (13:00)
[2022-10-16] MEDS ORDERED: IBUP1TAB5 PO (13:00)
== END 2022-10-16 13:26 | disposition home or self-care (01) ==
LOC: ER 10:08
DX: M54.16 Radiculopathy, lumbar region (principal); R10.2 Pelvic and perineal pain; F41.9 Anxiety disorder, unspecified; F32.9 Major depressive disorder, single episode, unspecified; I10 Essential (primary) hypertension; F17.210 Nicotine dependence, cigarettes, uncomplicated; F10.90 Alcohol use, unspecified, uncomplicated; Z88.8 Allergy status to other drugs, medicaments and biological substances; Z79.899 Other long term (current) drug therapy
CPT/HCPCS: 36415; 84702; 96372; 99284; J1100; J1885

== ENCOUNTER 2023-04-09 16:46 | Emergency (ER) | payer MEDICAID ==
[~2023-04-09] VITALS: Ht 170.2 cm; Wt 81.7 kg
[~2023-04-09 16:46] MED LIST changes: +IBUP1TAB5 PO; +PRED20TA2 PO
[2023-04-09 19:26] VITALS: BP 123/91; PULSE 72; RESP 18; TEMP 98.1; O2SAT 98
[2023-04-09] MEDS ORDERED: CEPH500C PO (19:36)
[2023-04-09] MEDS ORDERED: MUPI2OIN2 EX (19:36)
[2023-04-09] MEDS: TETANUS-DIPTH-ACEL PERTUSSIS 0.5ML SYR Tdap IM ONE (20:44)
== END 2023-04-09 20:47 | disposition home or self-care (01) ==
LOC: ER 16:46
DX: S01.312A Laceration without foreign body of left ear, initial encounter (principal); I10 Essential (primary) hypertension; Z88.8 Allergy status to other drugs, medicaments and biological substances; X50.9XXA Other and unspecified overexertion or strenuous movements or postures, initial encounter; Y93.89 Activity, other specified; Y92.89 Other specified places as the place of occurrence of the external cause; Y99.8 Other external cause status
CPT/HCPCS: 90471; 90715

== ENCOUNTER 2023-12-17 15:04 | Emergency (ER) | payer MEDICAID ==
[~2023-12-17] VITALS: Ht 167.6 cm; Wt 81.8 kg
[~2023-12-17 15:04] MED LIST changes: -BENA40TA70 PO; +BENA40TA71 PO; +CEPH500C PO; +MUPI2OIN2 EX
[2023-12-17 15:38] VITALS: BP 142/112; PULSE 95; RESP 16; TEMP 97.4; O2SAT 99
[2023-12-17] MEDS: KETOROLAC TROMETH 60MG/2ML VIAL IM ONE (16:31)
== END 2023-12-17 17:25 | disposition home or self-care (01) ==
LOC: ER 15:04
DX: M19.012 Primary osteoarthritis, left shoulder (principal); I10 Essential (primary) hypertension; F17.210 Nicotine dependence, cigarettes, uncomplicated; F41.9 Anxiety disorder, unspecified; F32.A Depression, unspecified; Z79.899 Other long term (current) drug therapy
CPT/HCPCS: 73030; 96372; 99283; J1885

== ENCOUNTER 2024-03-01 08:04 | Emergency (ER) | payer MEDICAID ==
[~2024-03-01] VITALS: Ht 167.6 cm; Wt 82.2 kg
[~2024-03-01 08:04] MED LIST changes: +NAP500T PO
[2024-03-01 08:27] VITALS: BP 128/94; PULSE 78; RESP 18; TEMP 98.5; O2SAT 98
--- NOTE | 2024-03-01 08:34 | ED.PDOC ---
SOB-HPI HPI Comments A 48-YEAR-OLD FEMALE WITH PMHX HTN PRESENTS WITH A CHIEF COMPLAINT OF COUGH, NASAL CONGESTION, SORE THROAT, AND BODY ACHES X 1 WEEK. PATIENT STATES THAT SHE HAS HAD AN UNPRODUCTIVE COUGH, SOME SLIGHT WHEEZING, AND NASAL CONGESTION FOR THE PAST WEEK. PATIENT MENTIONS TAKING NYQUIL AT HOME WITH NO RELIEF OF SYMPTOMS. PATIENT IS AFEBRILE, BUT DOES REPORT BODY ACHES. PATIENT DENIES ANY FEVER, HEADACHE, SOB, ABDOMINAL PAIN, OR CHEST PAIN. NO OTHER SYMPTOMS OR MODIFYING FACTORS PRESENT AT THIS TIME. Chief Complaint: Flu like Time Seen by MD: 08:29 Primary Care Provider: ? 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 Family History Family History: Reviewed,noncontributory to illness Social History Smoker: Cigarettes, Less Than 1 Pack/Day Alcohol: Heavy Drugs: Denies Drug Use Lives In: Home Constitutional: denies: chills, diaphoresis, fatigue, fever, malaise, sweats, weakness, others EENTM: reports: nose congestion, throat pain, throat swelling; denies: blurred vision, double vision, ear bleeding, ear discharge, ear drainage, ear pain, ear ringing, eye pain, eye redness, hearing loss, mouth pain, mouth swelling, nasal discharge, nose bleeding, nose pain, photophobia, tearing, voice changes, others Respiratory: reports: cough; denies: hemoptysis, orthopnea, SOB at rest, shortness of breath, SOB with excertion, stridor, wheezing, others Cardiovascular: denies: chest pain, dizzy spells, diaphoresis, Dyspnea on exertion, edema, irregular heart beat, left arm pain, lightheadedness, palpitations, PND, syncope, others Gastrointestinal: denies: abdomen distended, abdominal pain, blood streaked bowels, constipated, diarrhea, dysphagia, difficulty swallowing, hematemesis, melena, nausea, poor appetite, poor fluid intake, rectal bleeding, rectal pain, vomiting, others Genitourinary: denies: abnormal vagina bleeding, burning, dyspareunia, dysuria, flank pain, frequency, hematuria, incontinence, pain, , vagina discharge, urgency, others Neurological: denies: dizziness, fainting, headache, left sided numbness, left sided weakness, numbness, paresthesia, pre-existing deficit, right sided numbness, right sided weakness, seizure, speech problems, tingling, tremors, weakness, others Musculoskeletal: reports: muscle pain; denies: back pain, gout, joint pain, joint swelling, muscle stiffness, neck pain, others Integumetry: denies: bruises, change in color, change in hair/nails, dryness, laceration, lesions, lumps, rash, wounds, others Allergic/Immunocompromised: denies: Difficulty Healing, Frequent Infections, Hives, Itching, others Hematologic/Lymphatic: denies: anemia, blood clots, easy bleeding, easy bruising, swollen glands, others Endocrine: denies: excessive hunger, excessive sweating, excessive thirst, excessive urination, flushing, intolerance to cold, intolerance to heat, unexplained weight gain, unexplained weight loss, others Psychiatric: denies: anxiety, bipolar disorder, depression, hopeless, panic disorder, schizophrenia, sleepless, suicidal, others All Other Systems: Reviewed and Negative Physical Exam General Appearance: No Apparent Distress, Normal HEENT: PERRL/EOMI, Pharyngeal Erythema (TONSILLAR SWELLING, NO EXUDATES. ), TMs Normal Neck: Full Range of Motion, Non-Tender, Normal, Normal Inspection Respiratory: Chest Non-Tender, Expiration, No Accessory Muscle Use, No Respiratory Distress, Rhonchi Cardiovascular: No Edema, No JVD, No Murmur, No Gallop, Normal Peripheral Pulses, Regular Rate/Rhythm Breast Exam: Deferred Gastrointestinal: No Organomegaly, Non Tender, No Pulsatile Mass, Normal Bowel Sounds, Soft Genitalia: Deferred Pelvic: Deferred Rectal: Deferred Extremities: No calf tenderness, Normal capillary refill, Normal inspection, Normal range of motion, Non-tender, No pedal edema Musculoskeletal : Apperance: Normal Neurologic: Alert, keg header II-XII nml as Tested, No Motor Deficits, Normal Affect, Normal Mood, No Sensory Deficits Cerebellar Function: Normal Reflexes: Normal Skin: Dry, Normal Color, Warm Peripheral Pulses: 2+ carotid (R), 2+ carotid (L) Lymphatic: No Adenopathy Was a procedure done? Was a procedure done?: No Differential Dx Differential Diagnosis: Bronchitis, Pneumonia, Sinusitis, Pharyngitis, URI X-Ray, Labs, Meds, VS Vital Signs Date Time Temp Pulse Resp B/P (MAP) Pulse Ox O2 Delivery O2 Flow Rate FiO2 03/01/24 08:27 98.5 78 18 128/94 (105) 98 98.5 03/01/24 08:27 78 18 98 03/01/24 08:16 98.5 78 18 128/94 (105) 98 PATIENT: MARIA ELENA BUCHANAN ACCT: [id number] UNIT: [id number] : 1975 LOC: ER ROOM / BED: / AGE / SEX: 48 / F ADM STATUS: REG ER SERVICE 9 ORDERING PHYSICIAN: COREY OLIVEIRA PROCEDURE(s): CXR2 - CHEST TWO VIEWS ROUTINE REASON: cough ORDER NUMBER(s): [id number], ACCESSION NUMBER(s): [id number] XY CHEST TWO VIEWS ROUTINE CLINICAL HISTORY: cough COMPARISON: CHEST TWO VIEWS ROUTINE on DOS: 07/03/20 TECHNIQUE: Frontal and lateral view of the chest was obtained FINDINGS: Lines and Tubes: None Lungs: No focal consolidation. Pleura: No effusion. No pneumothorax. Cardiomediastinal contours: Unremarkable Bones: No acute osseous abnormality. IMPRESSION: No acute cardiopulmonary disease. ATED BY: SEAMUS LOCK MD DICTATED DATE/TIME: 03/01/24854 SIGNED BY: SEAMUS LOCK MD SIGNED DATE/TIME: 03/01/24854 X-Ray, Labs, Meds, VS Comment EXTERNAL MEDICAL RECORDS REVIEWED: [NONE] INDEPENDENT HISTORIANS: [NONE] SOCIAL DETERMINANTS OF HEALTH: [NONE] LABS ORDERED: NONE REVIEWED AND INTERPRETED RESULTS: NONE IMAGING ORDERED: CHEST X-RAY TREATMENTS ORDERED: PROCEDURES PERFORMED: NONE CRITICAL CARE TIME: NONE I HAVE DISCUSSED THE PATIENT WITH THE ATTENDING PHYSICIAN DR. FERNÁNDEZ AND VALERIANO VILLASEÑOR WITH THE PATIENT'S PLAN OF CARE AND DISPOSITION. GIVEN THE HISTORY AND PRESENT ILLNESS OF THE PATIENT, AFTER REVIEWING LABS, IMAGING, AND COURSE OF TREATMENT ADMINISTERED DURING THEIR ED VISIT, THERE IS LOW SUSPICION FOR RED FLAG FINDINGS. BASED ON HISTORY OF PRESENT ILLNESS, AND PHYSICAL EXAM, PATIENT WILL BE DISCHARGED HOME. DISCUSSED PLAN FOR DISCHARGE HOME WITH RX []. MEDICATION WARNINGS GIVEN. SHARED DECISION MAKING: DISCUSSED WITH PATIENT THAT THEIR WORKUP WAS NORMAL. PATIENT INSTRUCTED TO FOLLOW UP WITH PRIMARY CARE PROVIDER IN 1-2 DAYS FOR RE- EVALUATION OF SYMPTOMS. PATIENT VERBALIZES UNDERSTANDING TO RETURN TO ED FOR NEW OR WORSENING SYMPTOMS OR IF FOLLOW UP WITH PCP CANNOT BE OBTAINED. PATIENT FEELS COMFORTABLE GOING HOME AT THIS TIME. ALL QUESTIONS ADDRESSED AT TIME OF DISCHARGE. Time of 1ST Reevaluation: 09:02 Reevaluation 1ST: Unchanged Patient Education/Counseling: Diagnosis, Treatment, Prognosis Family Education/Counseling: Diagnosis, Treatment, Need For Follow Up Medical Screening: No EMC Exist At This Time Departure 1 Departure Time of Disposition: 09:03 Impression: Primary Impression: Acute bronchitis Qualified Codes: J20.9 - Acute bronchitis, unspecified Additional Impression: Acute tonsillitis Qualified Codes: J03.90 - Acute tonsillitis, unspecified Disposition: 01 HOME / SELF CARE / HOMELESS Condition: Stable Additional Instructions: FOLLOW UP WITH YOUR PCP IN 1-2 DAYS, RETURN TO THE ER IF YOUR SYMPTOMS WORSEN. e-Prescriptions Promethazine-Dm (Promethazine Dm 6.25-15 mg/5Ml) 1 Paige Paige 5 ML PO TID, #160 ML Prov: COREY OLIVEIRA 03/01/24 Ibuprofen (Ibuprofen) 800 Mg Tab 1 TAB PO TID, #30 TAB Prov: COREY OLIVEIRA 03/01/24 Azithromycin (Azithromycin) 500 Mg Tab 1 TAB PO DAILY, #5 TAB Prov: COREY OLIVEIRA 03/01/24 Discharged With: Self, Spouse Critical Care Note Critical Care Time?: No Stability Stability form required: No Heart Score Heart Score: Heart Score Response (Comments) Value History N/A 0 EKG N/A 0 Age N/A 0 Risk Factors N/A 0 Troponin N/A 0 Total 0 I personally scribed for COREY OLIVEIRA ([email or web address]) on 03/01/24 at 08:34. Electronically submitted by Johnny Joseph ([email or web address]). I personally scribed for COREY OLIVEIRA ([email or web address]) on 03/01/24 at 08:35. Electronically submitted by Johnny Joseph ([email or web address]). I personally scribed for COREY OLIVEIRA ([email or web address]) on 03/01/24 at 08:58. Electronically submitted by Johnny Joseph ([email or web address]). I personally scribed for COREY OLIVEIRA ([email or web address]) on 03/01/24 at 08:59. Electronically submitted by Johnny Joseph ([email or web address]). COREY OLIVEIRA Mar 01, 2024 08:34
--- NOTE | 2024-03-01 08:57 | DVH ---
XY CHEST TWO VIEWS ROUTINE CLINICAL HISTORY: cough COMPARISON: CHEST TWO VIEWS ROUTINE on DOS: 07/03/20 TECHNIQUE: Frontal and lateral view of the chest was obtained FINDINGS: Lines and Tubes: None Lungs: No focal consolidation. Pleura: No effusion. No pneumothorax. Cardiomediastinal contours: Unremarkable Bones: No acute osseous abnormality. IMPRESSION: No acute cardiopulmonary disease.
[2024-03-01] MEDS ORDERED: AZIT500T66 PO (09:02)
[2024-03-01] MEDS ORDERED: PROM1SOL4 PO (09:02)
[2024-03-01] MEDS ORDERED: IBUP-1456 PO (09:02)
== END 2024-03-01 09:06 | disposition home or self-care (01) ==
LOC: ER 08:04
DX: J20.9 Acute bronchitis, unspecified (principal); J03.90 Acute tonsillitis, unspecified; J45.909 Unspecified asthma, uncomplicated; I10 Essential (primary) hypertension; F17.210 Nicotine dependence, cigarettes, uncomplicated
CPT/HCPCS: 71046

== ENCOUNTER 2024-04-05 20:49 | Emergency (ER) | payer MEDICAID ==
[~2024-04-05] VITALS: Ht 167.6 cm; Wt 87.1 kg
[~2024-04-05 20:49] MED LIST changes: +AZIT500T66 PO; +PROM1SOL4 PO
--- NOTE | 2024-04-05 22:07 | ED.PDOC ---
History of Present Illness HPI Comments 48 y/o F presents with c/o deformity and pain to 2nd digit on left hand s/p fall injury, today. Patient comments on injuring her digit in an attempt to break her fall after she lost balance, earlier, this evening. She denies having any additional injuries, weakness, numbness, tingling, or other associated symptoms or modifiers at this time. No blood loss. Chief Complaint: Upper Extremity Time Seen by MD: 21:30 Primary Care Provider: ? Reviewed Notes: Nurses Notes, Medications, Allergies Allergies: Coded Allergies: LEON Inhibitors (Verified Allergy, Unknown, 10/31/20) Home Meds Active Scripts Promethazine-Dm (Promethazine Dm 6.25-15 mg/5Ml) 1 Paige Paige, 5 ML PO TID, #160 ML Prov:COREY OLIVEIRA 03/01/24 Ibuprofen (Ibuprofen) 800 Mg Tab, 1 TAB PO TID, #30 TAB Prov:COREY OLIVEIRA 03/01/24 Azithromycin (Azithromycin) 500 Mg Tab, 1 TAB PO DAILY, #5 TAB Prov:COREY OLIVEIRA 03/01/24 Mupirocin (Pseudomonas Fluores (Mupirocin) 2 % Oin, 1 APPLIC EX TID, #15 MG Apply to the affected area Prov:ALEXANDRA DONALD Q HOUSE PARENT 04/09/23 Cephalexin Monohydrate (Cephalexin) 500 Mg Cap, 1 CAP PO TID for 10 Days, #30 CAP Prov:ALEXANDRA DONALD Q HOUSE PARENT 04/09/23 Naproxen (NAPROSYN TABLET) 500 Mg Tb, 1 TAB PO BID PRN, #30 TAB 0 Refills Prov:FORD LUNA 03/27/23 Prednisone (Prednisone) 20 Mg Tab, 20 MG PO BID for 5 Days, #10 TAB 0 Refills Prov:FORD LUNA 03/27/23 Prednisone (Prednisone) 20 Mg Tab, 20 MG PO DAILY@BREAKFAST for 5 Days, #5 MG Prov:SANDRA HUBBARD HOUSE PARENT 10/16/22 Ibuprofen Micronized (Ibuprofen) 600 Mg Tab, 600 MG PO Q6HPRN PRN for 5 Days, #20 TAB Prov:SANDRA HUBBARD HOUSE PARENT 10/16/22 Lorazepam (ATIVAN TABLET) 0.5 Mg Tb, 1 TAB PO BID, #14 TAB Prov:COREY OLIVEIRA 09/10/22 Chlordiazepoxide Hcl (Librium) 25 Mg Cp, 2 TAB PO TID, #16 CAP 0 Refills Prov:FORD LUNA 08/31/21 Ibuprofen (Ibuprofen) 800 Mg Tab, 800 MG PO TID, #30 MG 0 Refills Prov:NASRIN RIVERA MD 07/25/21 Reported Medications Hydrochlorothiazide (Hydrochlorothiazide) 25 Mg Tab, 25 MG PO DAILY, TAB 02/12/14 Lorazepam (ATIVAN TABLET) 0.5 Mg Tb, 1 TAB PO TIDP PRN for ANXIETY 01/21/14 Benazepril Hcl (Benazepril Hcl) 40 Mg Tab, 40 MG PO DAILY 01/21/14 Metoprolol Tartrate (Metoprolol Tartrate) 100 Mg Tab, 100 MG PO DAILY 01/21/14 Information Source: Patient Mode of Arrival: Ambulatory Severity: Moderate Timing: Hours Duration: Since onset Prehospital treatment: None Past Medical History PAST MEDICAL HISTORY: Anxiety, Asthma, Depression, HTN 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 Family History Family History: Reviewed,noncontributory to illness Social History Smoker: Cigarettes, Less Than 1 Pack/Day Alcohol: Heavy Drugs: Denies Drug Use Lives In: Home Constitutional: denies: chills, diaphoresis, fatigue, fever, malaise, sweats, weakness, others EENTM: denies: blurred vision, double vision, ear bleeding, ear discharge, ear drainage, ear pain, ear ringing, eye pain, eye redness, hearing loss, mouth pain, mouth swelling, nasal discharge, nose bleeding, nose congestion, nose pain, photophobia, tearing, throat pain, throat swelling, voice changes, others Respiratory: denies: cough, hemoptysis, orthopnea, SOB at rest, shortness of breath, SOB with excertion, stridor, wheezing, others Cardiovascular: denies: chest pain, dizzy spells, diaphoresis, Dyspnea on exertion, edema, irregular heart beat, left arm pain, lightheadedness, palpitations, PND, syncope, others Gastrointestinal: denies: abdomen distended, abdominal pain, blood streaked bowels, constipated, diarrhea, dysphagia, difficulty swallowing, hematemesis, melena, nausea, poor appetite, poor fluid intake, rectal bleeding, rectal pain, vomiting, others Genitourinary: denies: abnormal vagina bleeding, burning, dyspareunia, dysuria, flank pain, frequency, hematuria, incontinence, pain, , vagina discharge, urgency, others Neurological: denies: dizziness, fainting, headache, left sided numbness, left sided weakness, numbness, paresthesia, pre-existing deficit, right sided n umbness, right sided weakness, seizure, speech problems, tingling, tremors, weakness, others Musculoskeletal: reports: others (deformity and pain to 2nd digit on left hand ); denies: back pain, gout, joint pain, joint swelling, muscle pain, muscle stiffness, neck pain Integumetry: denies: bruises, change in color, change in hair/nails, dryness, laceration, lesions, lumps, rash, wounds, others Allergic/Immunocompromised: denies: Difficulty Healing, Frequent Infections, Hives, Itching, others Hematologic/Lymphatic: denies: anemia, blood clots, easy bleeding, easy bruising, swollen glands, others Endocrine: denies: excessive hunger, excessive sweating, excessive thirst, excessive urination, flushing, intolerance to cold, intolerance to heat, unexplained weight gain, unexplained weight loss, others Psychiatric: denies: anxiety, bipolar disorder, depression, hopeless, panic disorder, schizophrenia, sleepless, suicidal, others All Other Systems: Reviewed and Negative (negative unless otherwise stated above or in HPI) Physical Exam General Appearance: Mild Distress (Due to left index finger dislocation), Normal HEENT: Normal ENT Inspection, Pharynx Normal, TMs Normal Neck: Full Range of Motion, Non-Tender, Normal, Normal Inspection Respiratory: Chest Non-Tender, Lungs Clear, No Accessory Muscle Use, No Respiratory Distress, Normal Breath Sounds Cardiovascular: No Edema, No JVD, No Murmur, No Gallop, Normal Peripheral Pulses, Regular Rate/Rhythm Breast Exam: Deferred Gastrointestinal: No Organomegaly, Non Tender, No Pulsatile Mass, Normal Bowel Sounds, Soft Genitalia: Deferred Pelvic: Deferred Rectal: Deferred Extremities: Other (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 Was a procedure done?: Yes Sedation Sedation?: No Reduction Indication: Dislocation (2nd digit on left hand) Sedation: Consents obtained Intra-articular anesthetic asad: No Nerve Block: Other (Manual reduction without anesthesia) Post-reduction x-ray show: Other (Reduction was successful.) Informed consent obtained: Yes Risks/benefits/alt described: Yes Differential Dx Considerations may include: dislocation X-Ray, Labs, Meds, VS Vital Signs Date Time Temp Pulse Resp B/P (MAP) Pulse Ox O2 Delivery O2 Flow Rate FiO2 04/05/24 21:20 99.0 106 18 155/110 (125) 98 X-Ray, Labs, Meds, VS Comment I was able to manually reduce the D IP dislocation of the left finger. Petros tape was applied. Advised patient utilize pain medication as needed. Time of 1ST Reevaluation: 22:34 Reevaluation 1ST: Improved Consultation: PCP Patient Education/Counseling: Diagnosis, Treatment Family Education/Counseling: Diagnosis, Treatment Departure 1 Departure Time of Disposition: 22:34 Impression: Primary Impression: Dislocation, finger closed Disposition: 01 HOME / SELF CARE / HOMELESS Condition: Stable Additional Instructions: Advised pain medication as needed as well as ice therapy. Petros tape as long as it aides in the healing process. e-Prescriptions Ibuprofen Micronized (Ibuprofen) 800 Mg Tab 800 MG PO Q8HP PRN, #10 TAB Prov: PAGE SIMON PAC 04/05/24 Discharged With: Self, Friend Critical Care Note Critical Care Time?: No Stability Stability form required: No Heart Score Heart Score: Heart Score Response (Comments) Value History N/A 0 EKG N/A 0 Age N/A 0 Risk Factors N/A 0 Troponin N/A 0 Total 0 I personally scribed for PAGE SIMON PAC ([email or web address]) on 04/05/24 at 22:07. Electronically submitted by Stephan Simmons ([email or web address]). I personally scribed for PAGE SIMON PAC ([email or web address]) on 04/05/24 at 22:09. Electronically submitted by Stephan Simmons ([email or web address]). PAGE SIMON PAC Apr 05, 2024 22:07
[2024-04-05] MEDS ORDERED: IBUP-1455 PO (22:35)
[2024-04-05 23:10] VITALS: BP 168/121; PULSE 89; RESP 20; TEMP 98.7; O2SAT 99
[2024-04-05] MEDS: IBUPROFEN 800 MG TAB PO ONE (23:23)
== END 2024-04-05 23:31 | disposition home or self-care (01) ==
LOC: ER 20:49
DX: S63.291A Dislocation of distal interphalangeal joint of left index finger, initial encounter (principal); J45.909 Unspecified asthma, uncomplicated; I10 Essential (primary) hypertension; F41.9 Anxiety disorder, unspecified; F17.210 Nicotine dependence, cigarettes, uncomplicated; Z79.1 Long term (current) use of non-steroidal anti-inflammatories (NSAID); Z79.52 Long term (current) use of systemic steroids; Z79.899 Other long term (current) drug therapy; W18.00XA Striking against unspecified object with subsequent fall, initial encounter; Y93.89 Activity, other specified; Y92.89 Other specified places as the place of occurrence of the external cause; Y99.8 Other external cause status
CPT/HCPCS: 26770